=== PATIENT | female | born 1945 | race African-American/Black ===

== ENCOUNTER 2018-03-20 11:48 | Inpatient (IN) ==
[2018-03-20] MEDS ORDERED: ENOXAPARIN 100 MG/ML SYRINGE SUBCUT STA (12:11)
[2018-03-20 12:19] LABS: Basophils % 0.4 % (0.0-0.8); Eosinophils # 0.1 10*3/uL (0.0-0.87); Eosinophils % 1.2 % (0.00-10.9); Hematocrit 37.6 VOL% (35.7-47.0); Hemoglobin 12.7 GM/DL (12.0-16.0); Immature Granulocytes % 0.6 %; Immature Granulocytes Absolute 0.03 #; Lymphocytes # 2.2 10*3/uL (1.4-4.0); Lymphocytes % 42.3 % (21.3-54.2); Mean Corpuscular HGB Conc 33.8 GM/DL (32-36); Mean Corpuscular Hemoglobin 32 PG (27-34); Mean Corpuscular Volume 94.7 FL (87-102); Monocytes # 0.4 10*3/uL (0.11-0.8); Monocytes % 7.1 % (1.7-12.7); Neutrophils # 2.5 10*3/uL (1.4-7.4); Neutrophils % 48.4 % (38.7-73.9); Platelet Count 209 T/CUMM (130-400); Red Blood Count 3.97 MC/CUMM (3.8-5.5); Red Cell Distribution Width 14.2 % (9.3-17.3); White Blood Count 5.2 T/CUMM (4-12)
[2018-03-20 12:39] LABS: Alanine Aminotransferase 30 U/L (13-56); Albumin 3.2 G/DL (3.4-5.0); Alkaline Phosphatase 59 U/L (45-117); Aspartate Amino Transferase 19 U/L (0-37); Bilirubin,Total < 0.39 MG/DL (0.2-1.0); Blood Urea Nitrogen 10 MG/DL (7-18); Calcium 8.1 MG/DL (8.5-10.1); Glucose 111 MG/DL (74-106); Osmolality,Calculated 282.1 MOS/KG (273-304); Potassium 3.7 MMOL/L (3.5-5.1); Sodium 142 MMOL/L (136-145); Total Protein 6.2 G/DL (6.4-8.3)
[2018-03-20] MEDS ORDERED: oxyCODONE/ACETAMINOPHEN 5-325 MG TABLET PO PRN (14:49)
[2018-03-20 15:11] LABS: Risk Ratio 3.06; VLDL CHOLESTEROL 18.8 MG/DL
[2018-03-20] MEDS ORDERED: ONDANSETRON 4 MG/2 ML VIAL IV PRN (15:17)
[2018-03-20] MEDS ORDERED: diphenhydrAMINE CAP 25 MG CAPSULE PO PRN (15:17)
[2018-03-20] MEDS: DOCUSATE SODIUM 100 MG CAPSULE PO SCH (20:18)
[2018-03-20] MEDS: ACETAMINOPHEN 325 MG TABLET PO PRN (20:18)
[2018-03-20] MEDS ORDERED: traZODone 50 MG TABLET PO SCH (21:00)
[2018-03-21] MEDS: HEPARIN 5,000 UNIT/1 ML VIAL SUBCUT SCH ×3 (00:54→18:33)
[2018-03-21 06:48] LABS: Basophils % 0.4 % (0.0-0.8); Eosinophils # 0.1 10*3/uL (0.0-0.87); Eosinophils % 1.2 % (0.00-10.9); Hematocrit 38.3 VOL% (35.7-47.0); Hemoglobin 12.5 GM/DL (12.0-16.0); Immature Granulocytes % 0.4 %; Immature Granulocytes Absolute 0.02 #; Lymphocytes # 1.9 10*3/uL (1.4-4.0); Lymphocytes % 39.5 % (21.3-54.2); Mean Corpuscular HGB Conc 32.6 GM/DL (32-36); Mean Corpuscular Hemoglobin 31 PG (27-34); Mean Platelet Volume 10.3 FL (9.6-12.0); Monocytes # 0.4 10*3/uL (0.11-0.8); Monocytes % 8.9 % (1.7-12.7); Neutrophils # 2.4 10*3/uL (1.4-7.4); Neutrophils % 49.6 % (38.7-73.9); Platelet Count 211 T/CUMM (130-400); Red Blood Count 4.03 MC/CUMM (3.8-5.5); Red Cell Distribution Width 14.1 % (9.3-17.3); White Blood Count 4.8 T/CUMM (4-12)
[2018-03-21 07:00] LABS: Albumin 3.1 G/DL (3.4-5.0); Bilirubin,Total 0.4 MG/DL (0.2-1.0); Calcium 8.3 MG/DL (8.5-10.1); Osmolality,Calculated 279.3 MOS/KG (273-304); Total Protein 6.4 G/DL (6.4-8.3)
[2018-03-21] MEDS ORDERED: DULoxetine 30 MG CAPSULE PO SCH (09:00)
[2018-03-21] MEDS ORDERED: MONTELUKAST 10 MG TABLET PO SCH (09:00)
[2018-03-21] MEDS ORDERED: ASPIRIN EC 81 MG TABLET PO SCH (09:00)
[2018-03-21] MEDS ORDERED: CITALOPRAM 20 MG TABLET PO SCH (09:00)
[2018-03-21] MEDS ORDERED: SIMVASTATIN 10 MG TABLET PO SCH (09:00)
[2018-03-21] MEDS ORDERED: CETIRIZINE 10 MG TABLET PO SCH (09:00)
[2018-03-21] MEDS ORDERED: PANTOPRAZOLE 40 MG TABLET PO SCH (09:00)
[2018-03-21] MEDS: DOCUSATE SODIUM 100 MG CAPSULE PO SCH (11:00)
[2018-03-21] MEDS: ACETAMINOPHEN 325 MG TABLET PO PRN ×2 (13:59→18:00)
[2018-03-21 18:31] VITALS: BP 143/85
== END 2018-03-21 20:02 | disposition home or self-care (01) | DRG 313 ==
LOC: EDBD → EDUNIT# → N.ED 11:48 → SUATTDRO 14:37 → N.EDINP 14:37 → N.5E 16:13
PROVIDERS: ADMIT Internal Medicine; ATTEND Internal Medicine

== ENCOUNTER 2018-10-06 01:46 | Observation (INO) ==
[2018-10-06 03:40] LABS: Basophils % 0.4 % (0.0-0.8); Eosinophils # 0.1 10*3/uL (0.0-0.87); Eosinophils % 1.6 % (0.00-10.9); Hematocrit 35.2 VOL% (35.7-47.0); Hemoglobin 11.5 GM/DL (12.0-16.0); Immature Granulocytes % 0.7 %; Immature Granulocytes Absolute 0.04 #; Lymphocytes # 1.4 10*3/uL (1.4-4.0); Lymphocytes % 25.3 % (21.3-54.2); Mean Corpuscular HGB Conc 32.7 GM/DL (32-36); Mean Corpuscular Volume 95.9 FL (87-102); Mean Platelet Volume 10.2 FL (9.6-12.0); Monocytes % 9.5 % (1.7-12.7); Neutrophils % 62.5 % (38.7-73.9); Platelet Count 209 T/CUMM (130-400); Red Blood Count 3.67 MC/CUMM (3.8-5.5); Red Cell Distribution Width 14.8 % (9.3-17.3); White Blood Count 5.6 T/CUMM (4-12)
[2018-10-06 04:13] LABS: Albumin 3.1 G/DL (3.4-5.0); Bilirubin,Total 0.5 MG/DL (0.2-1.0); Calcium 8.5 MG/DL (8.5-10.1); Osmolality,Calculated 281.3 MOS/KG (273-304); Total Protein 6.7 G/DL (6.4-8.3)
[2018-10-06] MEDS ORDERED: ACETAMINOPHEN 325 MG TABLET PO PRN (05:34)
[2018-10-06] MEDS ORDERED: ONDANSETRON 4 MG/2 ML VIAL IV PRN (05:34)
[2018-10-06 05:56] LABS: Apearance,Urine CLEAR (Clear); Bilirubin,Urine Negative (Negative); Blood, Urine Negative (Negative); Glucose,Urine (UA) Negative (Negative); Ketones,Urine Negative (Negative); Nitrite,Urine Negative (Negative); Protein,Urine Negative; RBC,Urine 1 /HPF (0-4); Urine Color Yellow (Yellow); Urine Specific Gravity 1.009 (1.001-1.035); Urine Urobilinogen < 2.0 EU/DL (0.2-1.0); WBC,Urine <1 /HPF (0-6)
[2018-10-06 06:02] LABS: Barbiturates Screen,Urine Negative (Negative); Benzodiazepines Screen,Urine Negative (Negative); Cannabinoid Screen,Urine Negative (Negative); Opiate Screen,Urine Negative (Negative); Phencyclidine Screen,Urine Negative (Negative)
[2018-10-06] MEDS ORDERED: LORazepam 2 MG/1 ML VIAL IV PRN (09:14)
[2018-10-06] MEDS ORDERED: oxyCODONE/ACETAMINOPHEN 5-325 MG TABLET ONE (09:43)
[2018-10-06] MEDS ORDERED: oxyCODONE/ACETAMINOPHEN 5-325 MG TABLET PO STA (09:56)
[2018-10-06] MEDS: ENOXAPARIN 40 MG/0.4 ML SYRINGE SUBCUT SCH (11:15)
[2018-10-06] MEDS: PANTOPRAZOLE 40 MG TABLET PO SCH (11:15)
[2018-10-06] MEDS ORDERED: CETIRIZINE 10 MG TABLET PO PRN (11:59)
[2018-10-06] MEDS: SODIUM CHLORIDE 0.9% 1,000 ML IV SCH (16:43)
[2018-10-06] MEDS: GABAPENTIN 300 MG CAPSULE PO SCH ×2 (16:43→21:13)
[2018-10-06] MEDS: traZODone 50 MG TABLET PO SCH (21:13)
[2018-10-06] MEDS: MONTELUKAST 10 MG TABLET PO SCH (21:14)
[2018-10-06] MEDS: DULoxetine 30 MG CAPSULE PO SCH (21:14)
[2018-10-06] MEDS: SIMVASTATIN 10 MG TABLET PO SCH (21:14)
[2018-10-06] MEDS: oxyCODONE/ACETAMINOPHEN 5-325 MG TABLET PO PRN (23:18)
[2018-10-07] MEDS: ENOXAPARIN 40 MG/0.4 ML SYRINGE SUBCUT SCH (05:15)
[2018-10-07 05:43] LABS: Basophils % 0.4 % (0.0-0.8); Eosinophils # 0.1 10*3/uL (0.0-0.87); Hematocrit 36.8 VOL% (35.7-47.0); Hemoglobin 12.1 GM/DL (12.0-16.0); Immature Granulocytes % 0.4 %; Immature Granulocytes Absolute 0.02 #; Lymphocytes # 1.9 10*3/uL (1.4-4.0); Lymphocytes % 40.5 % (21.3-54.2); Mean Corpuscular HGB Conc 32.9 GM/DL (32-36); Mean Corpuscular Volume 95.1 FL (87-102); Mean Platelet Volume 10.4 FL (9.6-12.0); Monocytes % 10.6 % (1.7-12.7); Neutrophils % 45.1 % (38.7-73.9); Platelet Count 208 T/CUMM (130-400); Red Blood Count 3.87 MC/CUMM (3.8-5.5); White Blood Count 4.6 T/CUMM (4-12)
[2018-10-07 05:58] LABS: Calcium 8.4 MG/DL (8.5-10.1)
[2018-10-07] MEDS: SODIUM CHLORIDE 0.9% 1,000 ML IV SCH ×2 (06:02→16:26)
[2018-10-07 06:03] LABS: Risk Ratio 2.69; VLDL CHOLESTEROL 18.2 MG/DL
[2018-10-07] MEDS: ASPIRIN EC 81 MG TABLET PO SCH (08:36)
[2018-10-07] MEDS: PANTOPRAZOLE 40 MG TABLET PO SCH (08:36)
[2018-10-07] MEDS: DULoxetine 30 MG CAPSULE PO SCH ×2 (08:36→20:32)
[2018-10-07] MEDS: GABAPENTIN 300 MG CAPSULE PO SCH ×3 (08:36→20:32)
[2018-10-07] MEDS: oxyCODONE/ACETAMINOPHEN 5-325 MG TABLET PO PRN ×2 (08:40→23:01)
[2018-10-07] MEDS ORDERED: PANTOPRAZOLE 40 MG TABLET PO SCH (09:00)
[2018-10-07] MEDS ORDERED: CITALOPRAM 20 MG TABLET PO SCH (09:00)
[2018-10-07] MEDS: SIMVASTATIN 10 MG TABLET PO SCH (20:32)
[2018-10-07] MEDS: MONTELUKAST 10 MG TABLET PO SCH (20:32)
[2018-10-07] MEDS: traZODone 50 MG TABLET PO SCH (20:33)
[2018-10-08] MEDS: ENOXAPARIN 40 MG/0.4 ML SYRINGE SUBCUT SCH (05:53)
[2018-10-08] MEDS: SODIUM CHLORIDE 0.9% 1,000 ML IV SCH (07:53)
[2018-10-08] MEDS ORDERED: CITALOPRAM 20 MG TABLET PO SCH (09:00)
[2018-10-08] MEDS: ASPIRIN EC 81 MG TABLET PO SCH (09:23)
[2018-10-08] MEDS: PANTOPRAZOLE 40 MG TABLET PO SCH (09:23)
[2018-10-08] MEDS: GABAPENTIN 300 MG CAPSULE PO SCH (09:23)
[2018-10-08] MEDS: DULoxetine 30 MG CAPSULE PO SCH (09:23)
[2018-10-08 12:45] VITALS: BP 146/82
== END 2018-10-08 15:32 | disposition home or self-care (01) ==
LOC: EDBD → EDUNIT# → N.ED 01:46 → N.EDINP 01:46 → SUATTDRO 05:34 → N.5E 10:40
PROVIDERS: ADMIT Internal Medicine; ATTEND Emergency Medicine

== ENCOUNTER 2019-04-04 20:05 | Observation (INO) ==
[2019-04-04] MEDS ORDERED: PANTOPRAZOLE 40 MG VIAL IV STA (20:30)
[2019-04-04] MEDS ORDERED: LACTATED RINGERS 1,000 ML IV ONE (20:32)
[2019-04-04 20:37] LABS: Basophils % 0.5 % (0.0-0.8); Eosinophils # 0.1 10*3/uL (0.0-0.87); Eosinophils % 2.3 % (0.00-10.9); Hematocrit 36.2 VOL% (35.7-47.0); Hemoglobin 12.2 GM/DL (12.0-16.0); Immature Granulocytes % 0.5 %; Immature Granulocytes Absolute 0.02 #; Lymphocytes # 1.8 10*3/uL (1.4-4.0); Lymphocytes % 41.4 % (21.3-54.2); Mean Corpuscular HGB Conc 33.7 GM/DL (32-36); Mean Platelet Volume 10.1 FL (9.6-12.0); Monocytes % 8.4 % (1.7-12.7); Neutrophils % 46.9 % (38.7-73.9); Platelet Count 243 T/CUMM (130-400); Red Blood Count 3.81 MC/CUMM (3.8-5.5); White Blood Count 4.3 T/CUMM (4-12)
[2019-04-04] MEDS ORDERED: SODIUM CHLORIDE 0.9% 1,000 ML IV STA (20:48)
[2019-04-04 20:57] LABS: Albumin 3.3 G/DL (3.4-5.0); Bilirubin,Total 0.4 MG/DL (0.2-1.0); Calcium 8.7 MG/DL (8.5-10.1); Osmolality,Calculated 277.4 MOS/KG (273-304); Total Protein 6.5 G/DL (6.4-8.3)
[2019-04-05] MEDS ORDERED: PROMETHAZINE 25 MG/1 ML VIAL IM PRN
[2019-04-05] MEDS ORDERED: ACETAMINOPHEN 325 MG TABLET PO PRN
[2019-04-05] MEDS ORDERED: ONDANSETRON 4 MG/2 ML VIAL IV PRN
[2019-04-05] MEDS ORDERED: traZODone 50 MG TABLET PO SCH (01:08)
[2019-04-05] MEDS: oxyCODONE/ACETAMINOPHEN 5-325 MG TABLET PO SCH ×4 (01:59→20:52)
[2019-04-05] MEDS: GABAPENTIN 300 MG CAPSULE PO SCH ×5 (02:00→20:51)
[2019-04-05 02:42] LABS: Basophils % 0.3 % (0.0-0.8); Eosinophils # 0.1 10*3/uL (0.0-0.87); Eosinophils % 1.7 % (0.00-10.9); Hematocrit 35.8 VOL% (35.7-47.0); Immature Granulocytes % 0.3 %; Immature Granulocytes Absolute 0.02 #; Lymphocytes % 35.1 % (21.3-54.2); Mean Corpuscular HGB Conc 33.5 GM/DL (32-36); Mean Corpuscular Volume 94.5 FL (87-102); Mean Platelet Volume 9.8 FL (9.6-12.0); Monocytes % 8.2 % (1.7-12.7); Neutrophils % 54.4 % (38.7-73.9); Platelet Count 225 T/CUMM (130-400); Red Blood Count 3.79 MC/CUMM (3.8-5.5); White Blood Count 5.8 T/CUMM (4-12)
[2019-04-05 03:04] LABS: Calcium 8.4 MG/DL (8.5-10.1); Osmolality,Calculated 280.3 MOS/KG (273-304)
[2019-04-05 08:14] LABS: Hematocrit 35.6 VOL% (35.7-47.0); Hemoglobin 11.9 GM/DL (12.0-16.0)
[2019-04-05] MEDS: PANTOPRAZOLE 40 MG VIAL IV SCH ×2 (09:44→20:52)
[2019-04-05] MEDS ORDERED: ALUM/MAG/SIMETH/LIDO VISC 1:1 30 ML BOTTLE PO ONE (13:50)
[2019-04-05 14:39] LABS: Hematocrit 35.2 VOL% (35.7-47.0); Hemoglobin 11.7 GM/DL (12.0-16.0)
[2019-04-05 19:57] LABS: Hematocrit 34.8 VOL% (35.7-47.0); Hemoglobin 11.7 GM/DL (12.0-16.0)
[2019-04-05] MEDS: traZODone 50 MG TABLET PO SCH (20:51)
[2019-04-05] MEDS: MONTELUKAST 10 MG TABLET PO SCH (20:51)
[2019-04-05] MEDS: SIMVASTATIN 10 MG TABLET PO SCH (20:51)
[2019-04-06 06:01] LABS: Basophils % 0.9 % (0.0-0.8); Eosinophils # 0.1 10*3/uL (0.0-0.87); Hematocrit 33.6 VOL% (35.7-47.0); Hemoglobin 11.2 GM/DL (12.0-16.0); Immature Granulocytes % 0.2 %; Immature Granulocytes Absolute 0.01 #; Lymphocytes # 2.1 10*3/uL (1.4-4.0); Lymphocytes % 44.7 % (21.3-54.2); Mean Corpuscular HGB Conc 33.3 GM/DL (32-36); Mean Corpuscular Volume 96.6 FL (87-102); Mean Platelet Volume 9.7 FL (9.6-12.0); Monocytes % 10.5 % (1.7-12.7); Neutrophils % 40.7 % (38.7-73.9); Platelet Count 207 T/CUMM (130-400); Red Blood Count 3.48 MC/CUMM (3.8-5.5); Red Cell Distribution Width 14.2 % (9.3-17.3); White Blood Count 4.7 T/CUMM (4-12)
[2019-04-06 06:23] LABS: Calcium 8.5 MG/DL (8.5-10.1); Osmolality,Calculated 278.3 MOS/KG (273-304)
[2019-04-06] MEDS: GABAPENTIN 300 MG CAPSULE PO SCH ×3 (08:16→21:29)
[2019-04-06] MEDS: oxyCODONE/ACETAMINOPHEN 5-325 MG TABLET PO SCH ×3 (08:16→21:29)
[2019-04-06] MEDS: CITALOPRAM 20 MG TABLET PO SCH (08:17)
[2019-04-06] MEDS: PANTOPRAZOLE 40 MG VIAL IV SCH ×2 (08:17→21:28)
[2019-04-06] MEDS: DULoxetine 30 MG CAPSULE PO SCH (08:17)
[2019-04-06] MEDS: OLOPATADINE 0.1% OPH SOLN 5 ML BOTTLE BOTH EYES SCH (08:25)
[2019-04-06] MEDS ORDERED: BISACODYL 5 MG TABLET PO ONE (12:00)
[2019-04-06] MEDS ORDERED: POLYETHYLENE GLYCOL POWDER 255 GM BOTTLE PO ONE (18:00)
[2019-04-06] MEDS: MONTELUKAST 10 MG TABLET PO SCH (21:29)
[2019-04-06] MEDS: traZODone 50 MG TABLET PO SCH (21:29)
[2019-04-06] MEDS: SIMVASTATIN 10 MG TABLET PO SCH (21:29)
[2019-04-07 05:16] LABS: Basophils % 0.6 % (0.0-0.8); Eosinophils # 0.2 10*3/uL (0.0-0.87); Eosinophils % 3.3 % (0.00-10.9); Hematocrit 38.2 VOL% (35.7-47.0); Hemoglobin 12.5 GM/DL (12.0-16.0); Immature Granulocytes % 0.4 %; Immature Granulocytes Absolute 0.02 #; Lymphocytes # 2.3 10*3/uL (1.4-4.0); Lymphocytes % 47.5 % (21.3-54.2); Mean Corpuscular HGB Conc 32.7 GM/DL (32-36); Mean Corpuscular Volume 97.2 FL (87-102); Mean Platelet Volume 9.8 FL (9.6-12.0); Monocytes % 9.4 % (1.7-12.7); Neutrophils % 38.8 % (38.7-73.9); Platelet Count 221 T/CUMM (130-400); Red Blood Count 3.93 MC/CUMM (3.8-5.5); White Blood Count 4.8 T/CUMM (4-12)
[2019-04-07 05:27] LABS: PT Patient Result 10.8 SECS (9.6-12.2)
[2019-04-07 05:39] LABS: Calcium 8.9 MG/DL (8.5-10.1); Osmolality,Calculated 278.3 MOS/KG (273-304)
[2019-04-07] MEDS ORDERED: MAGNESIUM CITRATE 300 ML BOTTLE PO ONE ×2 (06:00→11:48)
[2019-04-07] MEDS: oxyCODONE/ACETAMINOPHEN 5-325 MG TABLET PO SCH ×3 (09:15→21:32)
[2019-04-07] MEDS: LACTATED RINGERS 1,000 ML IV SCH (11:13)
[2019-04-07] MEDS: DULoxetine 30 MG CAPSULE PO SCH (13:14)
[2019-04-07] MEDS: PANTOPRAZOLE 40 MG VIAL IV SCH ×2 (13:15→21:33)
[2019-04-07] MEDS: OLOPATADINE 0.1% OPH SOLN 5 ML BOTTLE BOTH EYES SCH (13:15)
[2019-04-07] MEDS: CITALOPRAM 20 MG TABLET PO SCH (13:15)
[2019-04-07] MEDS: GABAPENTIN 300 MG CAPSULE PO SCH ×3 (13:15→21:32)
[2019-04-07 17:09] LABS: Hematocrit 37.4 VOL% (35.7-47.0); Hemoglobin 12.2 GM/DL (12.0-16.0)
[2019-04-07] MEDS ORDERED: POLYETHYLENE GLYCOL POWDER 255 GM BOTTLE PO ONE (18:00)
[2019-04-07] MEDS: MONTELUKAST 10 MG TABLET PO SCH (21:31)
[2019-04-07] MEDS: traZODone 50 MG TABLET PO SCH (21:32)
[2019-04-07] MEDS: SIMVASTATIN 10 MG TABLET PO SCH (21:32)
[2019-04-08 04:54] LABS: Basophils % 0.4 % (0.0-0.8); Eosinophils # 0.1 10*3/uL (0.0-0.87); Eosinophils % 2.6 % (0.00-10.9); Hematocrit 36.7 VOL% (35.7-47.0); Hemoglobin 11.8 GM/DL (12.0-16.0); Immature Granulocytes % 0.2 %; Immature Granulocytes Absolute 0.01 #; Lymphocytes # 2.3 10*3/uL (1.4-4.0); Lymphocytes % 41.5 % (21.3-54.2); Mean Corpuscular HGB Conc 32.2 GM/DL (32-36); Mean Corpuscular Volume 97.3 FL (87-102); Mean Platelet Volume 10.4 FL (9.6-12.0); Monocytes % 9.7 % (1.7-12.7); Neutrophils % 45.6 % (38.7-73.9); Platelet Count 213 T/CUMM (130-400); Red Blood Count 3.77 MC/CUMM (3.8-5.5); Red Cell Distribution Width 14.1 % (9.3-17.3); White Blood Count 5.5 T/CUMM (4-12)
[2019-04-08 04:57] LABS: PT Patient Result 10.7 SECS (9.6-12.2)
[2019-04-08 05:17] LABS: Calcium 8.6 MG/DL (8.5-10.1)
[2019-04-08] MEDS ORDERED: POLYETHYLENE GLYCOL POWDER 255 GM BOTTLE PO ONE (06:00)
[2019-04-08] MEDS ORDERED: MAGNESIUM CITRATE 300 ML BOTTLE PO ONE (06:00)
[2019-04-08] MEDS: oxyCODONE/ACETAMINOPHEN 5-325 MG TABLET PO SCH ×2 (08:28→14:36)
[2019-04-08] MEDS: CITALOPRAM 20 MG TABLET PO SCH (08:28)
[2019-04-08] MEDS: GABAPENTIN 300 MG CAPSULE PO SCH ×2 (08:28→14:36)
[2019-04-08] MEDS: DULoxetine 30 MG CAPSULE PO SCH (08:28)
[2019-04-08] MEDS: PANTOPRAZOLE 40 MG VIAL IV SCH (08:28)
[2019-04-08] MEDS: LACTATED RINGERS 1,000 ML IV SCH ×2 (08:28→12:31)
[2019-04-08] MEDS: OLOPATADINE 0.1% OPH SOLN 5 ML BOTTLE BOTH EYES SCH (08:29)
[2019-04-08] MEDS ORDERED: LIDOCAINE 2% 5 ML VIAL ONE (09:00)
[2019-04-08] MEDS ORDERED: propofoL 200 MG/20 ML VIAL IV ONE (09:00)
[2019-04-08 16:49] VITALS: BP 116/64
== END 2019-04-08 18:42 | disposition home or self-care (01) ==
LOC: EDUNIT# → EDBD → N.EDINP 20:05 → N.ED 20:05 → N.5E 04-05 00:18
PROVIDERS: ADMIT Internal Medicine; ATTEND Internal Medicine